=== PATIENT | female | born 1965 | race Caucasian/White ===

== ENCOUNTER 2022-10-26 09:15 | Inpatient (IN) | payer OTHER ==
[~2022-10-26] VITALS: Ht 160 cm; Wt 63.5 kg
[2022-10-26] MEDS ORDERED: LOSARTAN-HCTZ1 EAC1 PO (11:55)
[2022-10-26] MEDS ORDERED: LEVOTHYROXINE25 MCG PO (11:55)
[2022-10-26] MEDS ORDERED: ROSUVASTATIN CAL5 MG PO (11:56)
[2022-10-28] MEDS ORDERED: VITAMIN D3250 MCG (13:43)
== END 2022-10-29 13:32 | disposition home or self-care (01) | DRG 741 ==
LOC: OB/GYN 10-28 06:08 → O/R 10-28 06:08 → OB/GYN 10-28 09:15
PROVIDERS: ADMIT Obstetrics & Gynecology Gynecologic Oncology; ATTEND Obstetrics & Gynecology Gynecologic Oncology
PROC: 0UT74ZZ Resection of Bilateral Fallopian Tubes, Percutaneous Endoscopic Approach (ICD-10-PCS; 2022-10-28)
PROC: 0UT24ZZ Resection of Bilateral Ovaries, Percutaneous Endoscopic Approach (ICD-10-PCS; 2022-10-28)
PROC: 07BC4ZZ Excision of Pelvis Lymphatic, Percutaneous Endoscopic Approach (ICD-10-PCS; 2022-10-28)
PROC: 0UT94ZZ Resection of Uterus, Percutaneous Endoscopic Approach (ICD-10-PCS; principal; 2022-10-28 17:15)
DX: C54.1 Malignant neoplasm of endometrium (principal); Z20.822 Contact with and (suspected) exposure to COVID-19